=== PATIENT | female | born 2000 | race Caucasian/White ===

== ENCOUNTER 2018-10-07 11:58 | Day surgery (SDC) | payer OTHER ==
[2018-10-07] VITALS (11 sets, daily range): BP systolic 108–131; BP diastolic 31–92; PULSE 72–102; RESP 14–25; Ht 175.3 cm; Wt 69.2 kg
[~2018-10-07] VITALS: Ht 175.3 cm; Wt 69.2 kg
[~2018-10-07 11:58] MED LIST: SEVOFLURANE 15 MIN ONE
--- NOTE | 2018-10-07 15:23 | HPN ---
Date/Time of Note Date/Time of Note DATE: 10/07/18 TIME: 15:23 Interval H&P Admission Note Pt. seen H&P reviewed: No system changes DANIELLE ALMANZAR MD Oct 07, 2018 15:23
--- NOTE | 2018-10-07 15:50 | PREAC ---
Date/Time of Note Date/Time of Note DATE: 10/07/18 TIME: 15:50 Anesthesia Eval and Record Evaluation Time Pre-Procedure Interview DATE: 10/07/18 TIME: 15:50 Age 17 Sex female NPO: 8 hrs Preoperative diagnosis Chronic tonsillitis Planned procedure Tonsillectomy Past Medical History Past Medical History: Includes Recreational drugs: Marijuana Surgery & Anesthesia Issues No known issue Meds Anticoagulation: No Beta Man within 24 hr: No Reason Beta Man not given: Pt. not on B-Man No Active Prescriptions or Reported Meds Meds reviewed: Yes Allergies Coded Allergies: Latex, Natural Rubber (Verified Allergy, Unknown, RASH HIVES, 10/07/18) montelukast (Verified Allergy, Unknown, RASH, 10/07/18) walnut (Verified Allergy, Unknown, RASH, 10/07/18) Allergies Reviewed: Yes Labs/Studies Labs Reviewed: Reviewed by anesthesiologist test: Negative Pre-procedure Exam Last vitals Vital Signs Date Temp Pulse Resp B/P (MAP) Pulse Ox O2 O2 Flow FiO2 Time Delivery Rate 10/07/18 99.2 93 18 129/62 99 Room Air 12:57 (84) Airway: Adequate mouth opening Mallampati: Mallampati I Teeth: Normal Lung: Normal Heart: Normal ASA Physical Status ASA physical status: 2 Emergency: None Planned Anesthetic General/MAC: ETT Planned Pain Management Parenteral pain med Pre-operative Attestations Prior to commencing anesthesia and surgery, the patient was re-evaluated, there was verification of: *The patient's identity *The results of appropriate recent lab work and preoperative vital signs *The above evaluation not changing prior to induction *Anesthetic plan, risk benefits, alternative and complications discussed with patient/family; questions answered; patient/family understands, accepts and wishes to proceed. KORTNEY MERCADO MD Oct 07, 2018 15:50
[2018-10-07] MEDS ORDERED: METOCLOPRAMIDE 10 MG INJ IV PRN (16:00)
[2018-10-07] MEDS ORDERED: MEPERIDINE 25 MG INJ IV PRN (16:00)
[2018-10-07] MEDS ORDERED: HYDROmorphONE 1 MG/5 ML IV SYRINGE IV PRN ×3 (16:00)
[2018-10-07] MEDS ORDERED: MIDAZOLAM 1 MG/ML 2 ML INJ IV PRN (16:00)
[2018-10-07] MEDS ORDERED: DIPHENHYDRAMINE 50 MG INJ IV PRN (16:00)
[2018-10-07] MEDS ORDERED: OXYCODONE/ACETAMINOPHEN (5/325) TAB PO PRN ×2 (16:00)
[2018-10-07] MEDS ORDERED: ONDANSETRON 4 MG INJ IV PRN (16:00)
[2018-10-07] MEDS ORDERED: PROPOFOL 20 ML ONE (16:04)
[2018-10-07] MEDS ORDERED: GLYCOPYRROLATE 0.4 MG INJ ONE (16:04)
[2018-10-07] MEDS ORDERED: LIDOCAINE 2% (SDV) 5 ML INJ ONE (16:04)
[2018-10-07] MEDS ORDERED: ROCURONIUM 50 MG INJ ONE (16:04)
[2018-10-07] MEDS ORDERED: SUCCINYLCHOLINE CHLORIDE 100 MG/5 ML SYG IV ONE (16:04)
[2018-10-07] MEDS ORDERED: NEOSTIGMINE 3 MG/3 ML SYRINGE ONE (16:04)
[2018-10-07] MEDS ORDERED: ONDANSETRON 4 MG INJ ONE (16:27)
[2018-10-07] MEDS ORDERED: METOCLOPRAMIDE 10 MG INJ ONE (16:27)
[2018-10-07] MEDS ORDERED: HYDROCODONE/APAP (5/325) TAB PO PRN (16:30)
--- NOTE | 2018-10-07 16:31 | OPR ---
Date/Time of Note Date/Time of Note DATE: 10/07/18 TIME: 16:30 Operative Report Procedure Date: Oct 07, 2018 Preoperative Diagnosis Chronic and recurrent tonsillitis Postoperative Diagnosis Same Operation/Procedure Performed Tonsillectomy Surgeon see signature line Mold Setter None Anesthesia Type: general Estimated Blood Loss: 0 - 10 ml's Transfusion none Specimen Tonsils Grafts/Implants none Complications none Pt Condition Post Procedure: stable Disposition: PACU Indications Recurrent infection Procedure Description Description of procedure: The patient was identified in the holding area. We had a discussion to confirm understanding of all indications risks benefits alternatives and postoperative care associated with the operation. The patient signed informed consent was taken to the operating room. The patient was laid supine on the operating room table and general anesthesia was achieved without difficulty. The face was draped in sterile fashion. A McIvor mouth gag was placed and used to retract the oral cavity open, taking care to avoid damage to the teeth. The oral cavity and pharynx were inspected and palpated to reveal symmetric 2 plus tonsils. At this point the right palatine tonsil was grabbed superiorly with a curved Jenny clamp. It was retracted medially and monopolar cautery was used to enter the peritonsillar space. Dissection of the tonsil commenced in a superior to inferior fashion until it was completely resected. Suction Bovie cautery was used for spot hemostasis. At this point, the contralateral tonsil was removed in the exact similar fashion. There was no significant bleeding or oozing. Copious irrigation and suctioning was performed. Secondary inspection revealed no bleeding or oozing. The patient was awakened, extubated and taken to the PACU in stable condition. Complications: None DANIELLE ALMANZAR MD Oct 07, 2018 16:31
--- NOTE | 2018-10-07 17:03 | PAC ---
Date/Time of Note Date/Time of Note DATE: 10/07/18 TIME: 17:03 Post-Anesthesia Notes Post-Anesthesia Note Last documented vital signs Vital Signs Date Temp Pulse Resp B/P (MAP) Pulse Ox O2 O2 Flow FiO2 Time Delivery Rate 10/07/18 99.8 16:44 10/07/18 93 18 129/62 99 Room Air 12:57 (84) Activity: WNL Respiratory function: WNL Cardiovascular function: WNL Mental status: Baseline Pain reasonably controlled: Yes Hydration appropriate: Yes Nausea/Vomiting absent: Yes KORTNEY MERCADO MD Oct 07, 2018 17:03
== END 2018-10-07 18:00 | disposition home or self-care (01) ==
LOC: SDS 11:58
PROVIDERS: ATTEND Otolaryngology
DX: J03.91 Acute recurrent tonsillitis, unspecified (principal); J35.01 Chronic tonsillitis
CPT/HCPCS: 42826; J1170; J2405; Z7512; Z7610; 88304; J2710; J2765